=== PATIENT | female | born 2000 | race African-American/Black ===

== ENCOUNTER 2024-05-08 14:51 | Outpatient (CLI) | payer OTHER | END 2024-05-08 14:52 | disposition home or self-care (01) | LOC: BICULT 14:51 | PROVIDERS: ATTEND Advanced Practice Midwife | DX: O32.1XX0 Maternal care for breech presentation, not applicable or unspecified (principal); Z3A.27 27 weeks gestation of pregnancy | CPT/HCPCS: 76805 ==